=== PATIENT | male | born 1985 | race Caucasian/White ===

== ENCOUNTER 2018-06-07 16:15 | Emergency (ER) | payer SELFPAY ==
[~2018-06-07] VITALS: Ht 157.5 cm; Wt 60.0 kg
[2018-06-07 16:18] VITALS: Ht 157.5 cm; Wt 60.0 kg
[2018-06-07] MEDS ORDERED: ACETAMINOPHEN 325 MG TAB PO ONE (17:00)
[2018-06-07] MEDS ORDERED: SOD CHLORIDE 0.9% 100 ML ONE (17:52)
[2018-06-07] MEDS ORDERED: IODIXANOL LOCM 100 ML BTL ONE (17:52)
[2018-06-07] MEDS ORDERED: ONDANSETRON 4 MG INJ IV STA (18:39)
[2018-06-07] MEDS ORDERED: morphine 4 MG/ML VIAL IV STA (18:39)
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
[2018-06-07] MEDS ORDERED: DIPHTH/TET/ACEL PERTUSS (ADULT) 0.5 ML VIAL IM* ONE (20:00)
[2018-06-07] MEDS ORDERED: IBUP800T48 PO (20:20)
[2018-06-07] MEDS ORDERED: HYDR-4011 PO (20:20)
[2018-06-07] MEDS ORDERED: CEPH-443 PO (20:20)
[2018-06-07 20:32] VITALS: BP 113/84; PULSE 82; RESP 17
== END 2018-06-07 20:32 | disposition home or self-care (01) ==
LOC: FTE 16:15 → E/R 20:32
DX: S06.0X0A Concussion without loss of consciousness, initial encounter (principal); R40.2142 Coma scale, eyes open, spontaneous, at arrival to emergency department; R40.2362 Coma scale, best motor response, obeys commands, at arrival to emergency department; R40.2252 Coma scale, best verbal response, oriented, at arrival to emergency department; S01.81XA Laceration without foreign body of other part of head, initial encounter; S01.01XA Laceration without foreign body of scalp, initial encounter; R07.9 Chest pain, unspecified; W18.09XA Striking against other object with subsequent fall, initial encounter; Y92.89 Other specified places as the place of occurrence of the external cause; Z23 Encounter for immunization
CPT/HCPCS: 12004; 12013; 70450; 70486; 71045; 71260; 72125; 80048; 80076; 85025; 85610; 85730; 90715; 93005; J2270; J2405; Q9967; 90471; 96374; 96375